=== PATIENT | male | born 1995 | race African-American/Black ===

== ENCOUNTER 2019-03-18 11:18 | Emergency (ER) | payer BC, OTHER ==
[~2019-03-18] VITALS: Ht 182.9 cm; Wt 68.1 kg
[2019-03-18 11:33] VITALS: BP 140/63
== END 2019-03-18 12:55 | disposition left against medical advice (07) ==
LOC: ER 12:51
DX: Z53.21 Procedure and treatment not carried out due to patient leaving prior to being seen by health care provider (principal)

== ENCOUNTER 2021-01-25 16:55 | Emergency (ER) | payer SELFPAY ==
[~2021-01-25] VITALS: Ht 182.9 cm; Wt 61.0 kg
[2021-01-25] MEDS ORDERED: IPRATROPIUM/ALBUTEROL 0.5-3(2.5)MG/3ML NEB HHN ONE (17:15)
[2021-01-25] MEDS ORDERED: PREDNISONE 20MG TABLET PO ONE (17:15)
[2021-01-25] MEDS ORDERED: P50 MT (19:10)
[2021-01-25] MEDS ORDERED: ALBU6.7H9 INH (19:10)
[2021-01-25 19:17] VITALS: BP 112/85
== END 2021-01-25 19:18 | disposition home or self-care (01) ==
LOC: ER 16:55
DX: J45.901 Unspecified asthma with (acute) exacerbation (principal); Z98.890 Other specified postprocedural states
CPT/HCPCS: 71045; 94640; 99283; J7512; Z7610

== ENCOUNTER 2024-02-29 15:43 | Emergency (ER) | payer SELFPAY ==
[~2024-02-29] VITALS: Ht 182.9 cm; Wt 59.0 kg
[~2024-02-29 15:43] MED LIST: ALBU6.7H3 INH; P50 MT
[2024-02-29 16:29] VITALS: O2SAT 100
[2024-02-29] MEDS ORDERED: P20 MT (19:51)
[2024-02-29] MEDS ORDERED: ALBU90AE INH (19:52)
[2024-02-29 20:48] VITALS: BP 133/83; PULSE 95; RESP 20; TEMP 36.66960; O2SAT 100
== END 2024-02-29 20:53 | disposition home or self-care (01) ==
LOC: ER 15:43
DX: J45.901 Unspecified asthma with (acute) exacerbation (principal); Z90.89 Acquired absence of other organs
CPT/HCPCS: 99283